=== PATIENT | male | born 1950 | race Caucasian/White ===

== ENCOUNTER → 2022-11-01 13:10 | Outpatient (BNVA) | payer MEDICARE, OTHER, SELFPAY | PROVIDERS: PCP Family Medicine; Visit Provider Internal Medicine | DX: I35.0 Nonrheumatic aortic (valve) stenosis (principal); I50.20 Unspecified systolic (congestive) heart failure; R94.31 Abnormal electrocardiogram [ECG] [EKG] | CPT/HCPCS: 93005; 99204 ==

== ENCOUNTER 2022-11-20 14:15 | Outpatient (CLI) | payer MEDICARE, OTHER, SELFPAY ==
--- NOTE | 2022-11-20 14:30 | USCV_ITS ---
Blas Turner Age: 72 Gender: M : 1950 Exam Date: 11/20/2022 14:36 Ordering Phys: Renny Jennings M.D ([email or web address]) Technologist: Exam Location: [facility] [place] Indication: as BP: 120 / 64 HR: 80 Rhythm: Sinus Technical Quality: Adequate MEASUREMENTS (Male / Female) Normal Values 2D ECHO LV Diastolic Diameter PLAX 5.4 cm 4.2 - 5.9 / 3.9 - 5.3 cm LV Systolic Diameter PLAX 3.1 cm IVS Diastolic Thickness 1.2 cm 0.6 - 1.0 / 0.6 - 0.9 cm IVS Systolic Thickness 1.5 cm LVPW Diastolic Thickness 1.1 cm 0.6 - 1.0 / 0.6 - 0.9 cm LVPW Systolic Thickness 1.4 cm LVOT Diameter 2.0 cm LV Ejection Fraction 2D Teich 73.2 % LA Diameter 3.7 cm IVC Diameter 1.2 cm M-MODE Aortic Annulus Diameter 3.1 cm LA Ao Ratio MM 1.3 MV E Point Septal Separation 2.1 cm DOPPLER AV Peak Velocity 455.0 cm/s LVOT Peak Velocity 92.0 cm/s AV Area Cont Eq vti 0.6 cm squared AV Area Cont Eq pk 0.6 cm squared MV Area PHT 5.0 cm squared Mitral E to A Ratio 3.5 MV E' Velocity 56.0 cm/s Mitral E to MV E' Ratio 12.9 Mitral E to LV E' Lateral Ratio 12.3 Mitral E to LV E' Septal Ratio 13.6 TR Peak Velocity 272.3 cm/s TR Peak Gradient 29.7 mmHg TV Peak E Velocity 109.0 cm/s Right Atrial Pressure 3.0 mmHg Pulmonary Artery Systolic Pressu 32.7 mmHg RV Acceleration Time 0.1 s FINDINGS Left Ventricle Left ankle is normal in size. LV systolic function is moderately reduced with EF of 35 to 40%. Moderate global hypokinesis seen. Right Ventricle Normal in size and function Right Atrium Normal in size Left Atrium Normal in size Mitral Valve Structurally normal mitral valve. Mild mitral regurgitation Aortic Valve Aortic valve is thickened and calcified. Severe aortic stenosis with aortic valve area of 0.6 cm2 and mean gradient across aortic valve of 45 mmHg. Tricuspid Valve Mild tricuspid regurgitation. RVSP is 50-55mmHg. This is consistent with moderate pulmonary hypertension Pulmonic Valve Not well visualized Pericardium Normal Aorta Normal in size IVC Not well visualized CONCLUSIONS LV systolic function is moderately reduced with EF 35 to 40%. Moderate global hypokinesis seen. Mild mitral regurgitation Aortic valve is thickened and calcified. Severe aortic stenosis is seen with aortic valve area of 0.6 cm squared and mean gradient across aortic valve of 45 mmHg. Mild tricuspid regurgitation. Moderate pulmonary hypertension No comparison studies are available Renny Jennings MD (Electronically Signed) Final Date: 20 November 2022 19:26 S
== END 2022-11-20 14:16 | disposition home or self-care (01) ==
LOC: RAD 14:22
PROVIDERS: PCP Family Medicine; Visit Provider Internal Medicine
DX: I08.3 Combined rheumatic disorders of mitral, aortic and tricuspid valves (principal); I27.20 Pulmonary hypertension, unspecified
CPT/HCPCS: 93306

== ENCOUNTER → 2022-12-06 13:55 | Outpatient (BNVA) | payer MEDICARE, SELFPAY | PROVIDERS: PCP Family Medicine; Visit Provider Internal Medicine | DX: I35.0 Nonrheumatic aortic (valve) stenosis (principal); R58 Hemorrhage, not elsewhere classified; I50.20 Unspecified systolic (congestive) heart failure; F17.210 Nicotine dependence, cigarettes, uncomplicated | CPT/HCPCS: 36415; 80048; 85610; 99214 ==

== ENCOUNTER 2022-12-18 07:36 | Outpatient (CLI) | payer MEDICARE, SELFPAY ==
[2022-12-18] VITALS (14 sets, daily range): BP systolic 132–166; BP diastolic 64–91; PULSE 63–88; RESP 12–19; TEMP 36.4; O2SAT 91–99; BMI 24.8
--- NOTE | 2022-12-18 07:30 | XACV_ITS ---
Exam Room: 2 Ht: 183 cm Wt: 83 kg BSA: 2.06 m2 Gender: Male : 1950 Any Known Allergies: Codeine Exam Priority: Routine Procedure(s): Procedure Description: Diagnostic procedure Procedure Description: Left Heart Catheterization Procedure Description: Right Heart Catheterization Procedure Description: O2 saturation Procedure Description: Coronary Angiography Diagnostic Cath Status: Elective Diagnostic Findings * INDICATION: Severe aortic stenosis/ LV dysfunction. * No significant disease noted in the Left Main, Left Anterior Descending, Right, or Circumflex coronary arteries. * Coronary angiography shows right dominance. Conclusions 1. No significant disease noted in the Left Main, Left Anterior Descending, Right, or Circumflex coronary arteries. 2. Severe aortic stenosis with mean gradient of 48 mmHg and aortic valve area of 0.6 cm2. 3. Severely elevated left-sided cardiac pressures. 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 Recommendations * We have referred patient to structural heart team for evaluation for valve replacement. Patient already has an appointment. * Outpatient cardiology follow up here in 4-6 weeks. Diagnostic RX Recommendation: other cardiac therapy w/o CABG/PCI Anticoagulation: Heparin Pressures Phase:Rest AO : 113 / 74 ( 90 ) @ 9:00:00 AM 112 / 73 ( 90 ) @ 9:01:00 AM 114 / 83 ( 98 ) @ 9:07:00 AM 138 / 76 ( 101 ) @ 9:16:00 AM 134 / 80 ( 103 ) @ 9:16:00 AM 141 / 83 ( 108 ) @ 9:16:00 AM LV : 184 / 7 / 42 @ 9:16:00 AM 179 / 8 / 34 @ 9:16:00 AM 184 / 9 / 40 @ 9:16:00 AM RV : 58 / 0 / 14 @ 8:54:00 AM PA : 67 / 31 ( 44 ) @ 8:53:00 AM RA : a wave = 12 v wave = 11 mean = 10 @ 8:54:00 AM PCW : a wave = 29 v wave = 44 mean = 31 @ 8:53:00 AM O2 Content Phase:Rest PA : O2 Content O2: 66.5 @ 9:01:00 AM Saturations Phase:Rest AO : 96 @ 9:00:00 AM PA : 67 @ 9:01:00 AM Cardiac Output Phase:Rest Lewis : 4 @ 9:24:50 AM Lewis Cardiac Index: 2 @ 9:24:50 AM Flow Phase:Rest Qp : 4 @ 9:24:50 AM Qs : 4 @ 9:24:50 AM Valves Phase:DefaultPhase AV : 43.0 @ 9:24:50 AM 43.0 @ 9:24:50 AM AV Mean Gradient: 48.0 @ 9:24:50 AM 48.0 @ 9:24:50 AM AV Flow: 182 @ 9:24:50 AM AV Area: 0.6 @ 9:24:50 AM AV Area Index: 0.29 @ 9:24:50 AM Clinical Evaluation EBL: 5mL-10mL Procedural Details Procedure Consent Obtained. Pre-Procedure Time Out. Identified patient by full name and date of as verbalized by the patient/guarantor. Does the consent match the physician's order: Yes. Accurate & Complete Informed Consent: Yes. Inpatient/Outpatient History & Physical on Chart: Yes. If H&P is completed, is and addenduem needed: No; If yes, is the addendum complete: N/A. Visualize and Verify Site with Patient/Guarantor: N/A. Relevant Radiology Images available: Yes. Pre-op teaching completed and patient verbalized understanding. The risks, benefits, and alternatives of sedation and/or procedure were discussed by physician. The patient agrees to continue. Procedure started. Baseline sample Acquired. HR: [address] 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 Chest Pain Symptom Assessment: Asymptomatic. Correct patient, site and procedure confirmed by cath team. PERRLA. 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 Lungs clear x 5 lobes. IV Site on Arrival: 20 gauge in the right anticubital. IV Site on Arrival: 20 gauge in the left anticubital. IV Fluids: 0.9% NaCl at KVO. 0 mL infused prior to brick and blocker aid labor. Pre Procedural Pulses: bilateral dorsalis pedis was 3+. Pre Procedural Pulses: bilateral posterior tibial was 3+. Pre Procedural Pulses: right radial was 3+. right groin was prepped with chloroprep then draped in the usual sterile fashion. right radial was prepped with chloroprep then draped in the usual sterile fashion. right brachial was prepped with chloroprep then draped in the usual sterile fashion. Physician notified. Physician arrived. Star Oliveira RN circualting with Verónica Hendricks RN. Physician scrubbed in. Immediate Pre-Procedure Time Out. Correct Patient: Yes; Correct Procedure: Yes; Correct Site: Yes; Correct Patient Position: Yes; Correct Supplies: Yes; Dried Flammable Prep: Yes; Blood Products Available: N/A;. Lidocaine 1% infiltrated to the right brachial. Sheath wire inserted through the right brachial IV catheter. IV catheter out OTW. Gage-Suzi MON catheter inserted. Oximetry samples were obtained. Normal venous range: 60-85%. Normal arterial range: 95-100%. Pressure measurements obtained. Gage-Suzi out. Lidocaine 1% infiltrated to the right radial. Arterial access obtained. A 5 maldivian TIG catheter in over wire. Multiple views taken of left coronary artery. Catheter removed over the exchange wire. A 5 maldivian JR4 catheter in over wire. Respiratory arrived to run the O2 sats. Multiple views taken of right coronary artery. Catheter removed over the exchange wire. Catheter removed over the exchange wire. 6Fr Jack catheter inserted OTW. Gradient taken: LV 179/8,34; AO 134/80(103); Mean: 44mmHg, Peak to Peak: 45mmHg, SEP: 21sec/min; HR: 76 BPM; SpO2: 99%. Gradient taken: LV 184/9,40; AO 141/83(108); Mean: 48mmHg, Peak to Peak: 43mmHg, SEP: 24sec/min; HR: 77 BPM; SpO2: 99%. Catheter removed over the exchange wire. Physician scrubbed out. A TR Band was successful obtaining hemostatsis at the Right Radial artery insertion site. A Manual Compression was successful obtaining hemostatsis at the Right Brachial Vein insertion site. Vital chart was stopped. Post Procedure: Pulses reassessed and unchanged. PERRLA. 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 No VTE prophylaxis required. Post-op diagnosis: Severe Aortic Stenosis, No CAD. Complications: None. Estimated blood loss: 5mL-10mL. Responsiveness - Normal response to verbal stimuli; alert and oriented, PERRLA. Airway - Unaffected, no intervention required; spontaneous ventilation. Circulation: W/N/L, pulses unchanged. Nausea/Vomiting: No. Medication's Wasted: Nitro = 49.8 mg. Medication's Wasted: Heparin = 4000 units. Medication's Wasted: Other = Fentanyl 50mcg Versed 1 mg. Total IV fluids: 57 mL. Procedure completed. Patient transferred by wheelchair to CPRU. Access Site Site: Right Brachial Vein Sheath Size: 6 Fr Hemostasis Method: Manual Compression Hemostasis Success: Successful Site: Right Radial artery Sheath Size: 6 Fr Hemostasis Method: TR Band Hemostasis Success: Successful Procedure Medications Start: 8:39 AM Stop: 8:39 AM Medication: Versed Amount: 1 mg Route: I.V. Start: 8:39 AM Stop: 8:39 AM Medication: Fentanyl Amount: 50 mcg Route: I.V. Start: 8:58 AM Stop: 8:58 AM Medication: Nitrogylcerin Amount: 200 mcg Route: I.A. Start: 8:59 AM Stop: 8:59 AM Medication: Heparin Amount: 5000 units Route: I.V. I, the attending physician, have reviewed and verified all procedure medications. Yes, all medications given per verbal order History/Risk Factors Hypertension: No Dyslipidemia: No Peripheral Arterial Disease (PAD): No Myocardial Infarction (CT): No Obesity: No Renal Disease: No Tobacco Use: Current/Recent(w/in 1 year) Prior Interventions PCI: No CABG: No Valve Surgery: No Report Signatures Finalized by Renny Jennings MD on 12/18/2022 01:57 PM
[2022-12-18] MEDS: diphenhydrAMINE 50 mg Capsule PO (07:56)
[2022-12-18] MEDS: aspirin 325 mg Tablet PO (07:57)
[2022-12-18] MEDS: sodium chloride 0.9% 1,000 ML 50 ML IV (07:57)
[2022-12-18 08:06] LABS: Basophils % 0.6 %; Eosinophils # 0.2 10^3/uL (0.0-0.8); Eosinophils % 2.8 %; Hematocrit 43.3 % (42.0-52.0); Hemoglobin 13.9 g/dL (11.7-16.6); Lymphocytes # 1.1 10^3/uL (0.8-4.8); Lymphocytes % 16.8 %; Mean Corpuscular HGB Conc 32.1 g/dL (30.0-36.0); Mean Corpuscular Hemoglobin 30.8 pg (28.0-34.0); Mean Corpuscular Volume 95.8 fl (80-94); Mean Platelet Volume 9.2 fL (7.4-10.4); Monocytes # 0.5 10^3/uL (0.2-0.9); Monocytes % 7.4 %; Neutrophils # 4.68 10^3/uL (1.8-7.7); Neutrophils % 72.2 %; Nucleated Red Blood Cells % 0 %; Platelet Count 174 10^3/cmm (130-400); Red Blood Count 4.52 10^6/uL (4.1-5.3); Red Cell Distribution Width 13.3 % (12.1-15.1); White Blood Count 6.5 10^3/uL (4.0-10.0)
[2022-12-18 08:23] LABS: Anion Gap 14.9 (5-19); Blood Urea Nitrogen 23 mg/dL (8-23); Calcium 9.1 mg/dL (8.5-10.5); Carbon Dioxide 28 mmol/L (22-29); Chloride 101 mmol/L (98-107); Glucose 106 mg/dL (65-115); Osmolality Calculated 294 mOsm/kg (285-295); Potassium 3.9 mmol/L (3.5-5.1); Sodium 140 mmol/L (136-145)
--- NOTE | 2022-12-18 08:41 | W.PM.OPSUD ---
Surgery/Procedure H&P Update DATE OF PROCEDURE: December 18, 2022 DATE H&P PERFORMED: 12/06/22 H&P UPDATE INFORMATION: I have reviewed H&P completed within last 30 days, I have examined patient prior to procedure and No changes to prior documentation PREOP DIAGNOSIS: Severe aortic stenosis PRIMARY INDICATION FOR PROCEDURE: Severe aortic stenosis PLANNED PROCEDURE: Operation Date: 12/18/22 08:30 Proposed Procedures p Right and Left Heart Cath 45566,I35.0, I50.20(Bilateral) - Renny Jennings M.D Possible percutaneous coronary intervention PATIENT REASSESSED PRIOR TO SEDATION, WITH NO CHANGE NOTED: Yes PHYSICAL EXAM: alert, oriented x 3, clear to auscultation bilaterally and regular rate & rhythm OTHER PERTINENT EXAM FINDINGS: Grade 3/6 systolic function AIRWAY EVAL/ANESTHESIA PLAN: normal airway, ASA III, Local Anesthesia, Risks, benefits & alternatives of sedation and/or procedure discussed and Patient agrees to continue as planned ADDITIONAL INFORMATION: Moderate sedation
[2022-12-18 09:08] LABS: Arterial Blood Gas Hematocrit 39.8 % (42-52); Blood Gas Operator Identificat WALCI; Blood Gas Sample Type Not specified; Carboxyhemoglobin 4.4 %THgb (0.4-20.1); HGB O2 Sat 90.6 % (95-100); Methemoglobin 0.8 % (0.4-1.5)
[2022-12-18 09:10] LABS: Arterial Blood Gas Hematocrit 34.1 % (42-52); Blood Gas Operator Identificat WALCI; Blood Gas Sample Type Not specified; Carboxyhemoglobin 4.4 %THgb (0.4-20.1); HGB O2 Sat 62.9 % (95-100); Total Hemoglobin 11.1 g/dL (14-18)
--- NOTE | 2022-12-18 09:30 | SUR.PHASEII ---
POST CATH NOTE Patient brought from Science Consultant- status post cardiac catheterization via the right radial artery and right brachial vein. Verbal post cath istructions given- verbalized understanding. SEE PCS documentation for vs and assessments.
--- NOTE | 2022-12-18 09:46 | SUR.PHASEII ---
POST OP FLUID RATE 75 ML/HR OF 0.9%NS ORDERED.
--- NOTE | 2022-12-18 10:30 | SUR.PHASEII ---
Right brachial vein dressing removed. No hematoma noted. Band aid applied to site. TR band removal began.
--- NOTE | 2022-12-18 12:00 | SUR.PHASEII ---
TR BAND REMOVED. No complications.
[2022-12-19 09:56] LABS: Blood Gas Sample Site Not specified
== END 2022-12-18 12:57 | disposition home or self-care (01) ==
PROVIDERS: PCP Family Medicine; Visit Provider Internal Medicine
DX: I35.0 Nonrheumatic aortic (valve) stenosis (principal); I27.20 Pulmonary hypertension, unspecified; I50.20 Unspecified systolic (congestive) heart failure; Z79.82 Long term (current) use of aspirin; F17.210 Nicotine dependence, cigarettes, uncomplicated
CPT/HCPCS: 36415; 80048; 82810; 85025; 93460; 96361; 96365; 99152; 99153; C1751; C1769; C1887; C1894; J1644; J2250; J3010; J3490; J7030; Q0163; Q9967